=== PATIENT | female | born 1990 | race Caucasian/White ===

== ENCOUNTER 2016-10-11 10:57 | Emergency (ER) | payer BC ==
[~2016-10-11] VITALS: Ht 152.4 cm; Wt 69.5 kg
[~2016-10-11 10:57] MED LIST: ACYC1CAP16 PO; DOXY100T PO; HYDR-3533 PO; Z.0.BCPILL PO; ZOFR4TAB3 SL
[2016-10-11 10:58] VITALS: BP 133/88; PULSE 79; RESP 16; TEMP 98.5; O2SAT 100
[2016-10-11] MEDS ORDERED: TRAM50TA PO (11:18)
[2016-10-11] MEDS ORDERED: ACYC400T PO (11:18)
[2016-10-11] MEDS ORDERED: NORT1TAB PO (11:18)
[2016-10-11] MEDS ORDERED: LORA-373 PO (11:18)
[2016-10-11] MEDS ORDERED: ESCI10TA PO (11:18)
[2016-10-11] MEDS ORDERED: MORPHINE SULFATE 4 MG/ML INJ IV PUSH ONE ×2 (11:30→13:45)
[2016-10-11] MEDS ORDERED: ONDANSETRON HCL 4 MG/2 ML VIAL IV PUSH ONE (11:30)
[2016-10-11 11:42] VITALS: BP 140/76; PULSE 80; RESP 16; O2SAT 100
--- NOTE | 2016-10-11 12:28 | PD ---
HPI Chief Complaint: [employer] Problem/Complaint Time Seen by Provider: 12:22 Travel History International Travel<30 days: No Contact w/Intl Traveler<30days: No Traveled to known affect area: No History of Present Illness HPI 26-year-old female that presents to the ED for evaluation of lower abdominal pain and vaginal bleeding. Per patient she's had this since today. Per patient she has black what appears to be correlated blood coming from the vagina. Per patient she does have a history of PID, endometriosis, PCO as. Per patient this episode started today. She's had episodes like this in the past and she is hoping that she will eventually get surgery to get her endometriosis under control including possible hysterectomy. Per patient she tried to call her doctor today to see the echo see her for this but the office told her to come here if she had severe discomfort. Patient denies any recent sexual contact and states that she does not believe she has an STD or PID. She was treated for bacterial vaginosis recently. Patient's pain is 8 out of 10. Denies any bowel movement or urinary issues. Denies any trauma. Per patient this is started of a couple hours ago. Nothing makes it better or worse. She states that she's had episodes like this in the past. She currently takes control to help prevent this but it seems to continue to happen. Allergy to codeine PFSH Past Medical History Asthma: Yes Diminished Hearing: No Gastrointestinal Disorders: Yes (shivam) Genitourinary: Yes (HERPES, ovarian cysts) Medical other: Yes (endomitrosis, hpv, PID, polycystic ovarian syndrome) Immunizations Current: Yes Tetanus Vaccination: < 5 Years ?: Not LMP: 06/2016 : 0 Ectopic : No Ovarian Cysts: No Past Surgical History Cholecystectomy: Yes Hysterectomy: No Other Surgery: Yes (SURG ON NOSE) Social History Alcohol Use: No Tobacco Use: No Substance Use: No Allergies-Medications (Allergen,Severity, Reaction): Coded Allergies: Codeine (Verified Allergy, Severe, ACTS CRAZY..., 04/10/16) Reported Meds & Prescriptions Reported Meds & Active Scripts Active Lortab (Hydrocodone-Acetaminophen) 5-325 Mg Tab 1 Tab PO Q6H PRN Diclofenac Sodium DR (Diclofenac Sodium) 75 Mg Tabdr 75 Mg PO BID PRN Reported Acyclovir 400 Mg Tab 400 Mg PO DAILY Tramadol (Tramadol HCl) 50 Mg Tab 50 Mg PO Q4H PRN Lorazepam 0.5 Mg Tab 0.5 Mg PO DAILY PRN Escitalopram (Escitalopram Oxalate) 10 Mg Tab 10 Mg PO DAILY Nortrel 1/35 (Norethindrone-Ethinyl Estradiol) 1-35 Mg-Mcg Tab 1 Tab PO DAILY Review of Systems General / Constitutional: No: Fever, Chills, Weight Gain, Weight Loss, Other Eyes: No: Diploplia, Blurred Vision, Photophobia, Drainage, Redness, Foreign Body Sensation, Pain, Tearing, Blind Spots, Visual changes, Blindness, Other HENT: No: Headaches, Vertigo, Lightheadedness, Sore Throat, Rhinitis, Rhinorrhea, Congestion, Nosebleed, Neck Stiffness, Neck Pain, Masses, Gingival Bleeding, Dental Difficulties, Ear Discharge, Earache, Other Cardiovascular: No: Chest Pain or Discomfort, Palpitations, Irregular Rhythm, Tachycardia, Diaphoresis, Syncope, Dyspnea on exertion, Varicosities, Edema, Cyanosis, Varicosities, Phlebitis, Claudication, Other Respiratory: No: Cough, Shortness of Breath, Wheezing, Sneezing, Orthopnea, Hemoptysis, Stridor, Night Sweats, Pleuritic Pain, Other Gastrointestinal: Positive: Abdominal Pain, No: Nausea, Vomiting, Diarrhea, Hematemesis, Hematochezia, Constipation, Changes in Bowel Habits, Indigestion, Dysphagia, Loss of Appetite, Other Genitourinary: Positive: Pelvic Pain, Dysmenorrhea, Vaginal Bleeding, No: Urgency, Frequency, Dysuria, Nocturia, Hematuria, Decreased Urinary Output, Oliguria, Hesitancy, Dribbling, Incontinence, Flank Pain, Dyspareunia, Discharge , Menorrhagia, Metorrhagia, Other Musculoskeletal: No: Myalgias, Arthralgias, Limited ROM, Weakness, Cramping, Edema, Pain, Atrophy, Other Skin: No Rash, No Itching, No Dryness, No Lumps, No Hives, No Change in Pigmentation, No Change in nails, No Alopecia, No Lesions, No Breast Lumps, No Breast Tenderness, No Breast Swelling, No Other Neurologic: No: Weakness, Dizziness, Syncope, Focal Abnormalities, Coordination Problem, Tremor, Ataxia, Headache, Change in Mentation, Slurred Speech, Paresthesia, Incontinence, Seizures, Sensory Disturbance, Other Psychiatric: No: Anxiety, Depression, Suicidal Ideations, Disorder of Thought, Mood Disorder, Substance Abuse, Homicidal Ideation, Other Endocrine: No: Heat Intolerance, Cold Intolerance, Polyuria, Polydipsia, Other Hematologic/Lymphatic: No: Easy Bruising, Lymph Node Enlargement, Other Physical Exam Narrative GENERAL: SKIN: Warm and dry. HEAD: Atraumatic. Normocephalic. EYES: Pupils equal and round. No scleral icterus. No injection or drainage. ENT: No nasal bleeding or discharge. Mucous membranes pink and moist. Tongue is midline. No uvula deviation. NECK: Trachea midline. No JVD. CARDIOVASCULAR: Regular rate and rhythm. No murmurs, S3, S4. RESPIRATORY: No accessory muscle use. Clear to auscultation. Breath sounds equal bilaterally. GASTROINTESTINAL: Abdomen soft, non-tender, nondistended. Hepatic and splenic margins not palpable. Pelvic exam: The within her nurse present. Patient does have some blood and correlated blood coming out of the vagina. Patient does have cervical tenderness to palpation and some adnexal tenderness to palpation but no obvious mass or deformity noted. MUSCULOSKELETAL: Extremities without clubbing, cyanosis, or edema. No obvious deformities. Full range of motion of the upper and lower extremities bilaterally. 2+ pulses bilaterally. NEUROLOGICAL: Awake and alert. No obvious cranial nerve deficits. Motor grossly within normal limits. Five out of 5 muscle strength in the arms and legs. Normal speech. PSYCHIATRIC: Appropriate mood and affect; insight and judgment normal. Data Data Last Documented VS Vital Signs Date Time Temp Pulse Resp B/P Pulse Ox O2 Delivery O2 Flow Rate FiO2 10/11/16 12:57 18 10/11/16 11:42 80 140/76 100 Room Air 10/11/16 10:58 98.5 Orders Gc And Chlamydia Pcr (10/11/16 11:14) Wet Prep Profile (10/11/16 11:14) Urinalysis - C+S If Indicated (10/11/16 11:14) Iv Access Insert/Monitor (10/11/16 11:14) Ed Urine Pregnancytest Poc (10/11/16 11:14) Morphine Inj (Morphine Inj) (10/11/16 11:30) Ondansetron Inj (Zofran Inj) (10/11/16 11:30) Complete Blood Count With Diff (10/11/16 12:32) Us Pelvis Comp W Dop Transvag (10/11/16 ) Labs Laboratory Tests Test 10/11/16 10/11/16 11:39 12:41 Clue Cells (Wet Prep) NONE SEEN Vaginal Trichomonas (Wet Prep) NONE SEEN Vaginal Yeast (Wet Prep) NONE SEEN White Blood Count 4.1 TH/MM3 Red Blood Count 4.73 MIL/MM3 Hemoglobin 13.8 GM/DL Hematocrit 40.1 % Mean Corpuscular Volume 84.8 FL Mean Corpuscular Hemoglobin 29.2 PG Mean Corpuscular Hemoglobin 34.5 % Concent Red Cell Distribution Width 12.9 % Platelet Count 211 TH/MM3 Mean Platelet Volume 8.6 FL Neutrophils (%) (Auto) 57.9 % Lymphocytes (%) (Auto) 33.3 % Monocytes (%) (Auto) 7.6 % Eosinophils (%) (Auto) 0.5 % Basophils (%) (Auto) 0.7 % Neutrophils # (Auto) 2.4 TH/MM3 Lymphocytes # (Auto) 1.4 TH/MM3 Monocytes # (Auto) 0.3 TH/MM3 Eosinophils # (Auto) 0.0 TH/MM3 Basophils # (Auto) 0.0 TH/MM3 CBC Comment DIFF FINAL Differential Comment MDM Medical Decision Making Medical Screen Exam Complete: Yes Emergency Medical Condition: Yes Medical Record Reviewed: Yes Interpretation(s) CBC Diagram 10/11/16 12:41 wet prep negative Last Impressions Abdomen/Pelvis/Transvag US 10/11/16 0000 Signed Impressions: Service Date/Time: Tuesday, October 11, 2016 11:52 - CONCLUSION: 1. Small amount of fluid/blood in the lower uterine segment/cervix. 2. Otherwise negative. No free fluid identified. Both ovaries are sonographically normal. Nathanael Rizzo MD Differential Diagnosis Bacterial vaginosis versus vaginitis versus PID versus endometriosis versus acute on chronic pain versus menstrual cramp Narrative Course 26-year-old female that presents to the ED for evaluation of vaginal pain and pelvic pain. Patient was properly examined and was found to have signs and symptoms consistent what appears to be possible menstrual pain worsened secondary to endometriosis. At this time I do recommend pelvic as well as labs and imaging. She is agreeable with this. Patient was given IV pain medication. Pelvic exam reveals some cervical tenderness as well as correlated blood coming from the vagina. No obvious discharge at this time. No sign of deformity. Labs and imaging showed some pelvic fluid but no sign of acute disease. No sign of infection. At this time this appears to be likely secondary to menstrual period versus endometriosis. I suspect that this will likely require some surgical treatment as she has failed multiple treatments in the past. I highly recommend that she follows up with [employer] SUPER[employer] for likely surgical consult. SATURNINO agrees and understands.I will treat her pain with Lortab and diclofenac sodium. Recommend close follow with PCP. See ED worsening symptoms. Patient was told that if anything worsens she is to come back. GC and Chlamydia still pending but I do not believe this is related to infection and it believe this is likely more related to her menstrual period With endometriosis. This was discussed with my attending Dr Camacho who agrees with plan. Diagnosis Primary Impression: Dysmenorrhea Patient Instructions: General Instructions, Narcotic given in the ED Additional Instructions: Take medications as prescribed. Follow-up with [employer]PER[employer] this week for reevaluation and hopefully scheduling surgical fixation of the issue sooner than later. See ED for any worsening symptoms. Do not drink or drive while taking pain medication. Apply ice or heat as needed for pain. All of your labs look good and no sign of infection. Pelvic US showed only some fluid in the pelvis, but no torsion, masses or deformities. Med/Other Pt SpecificInfo: Prescription(s) given Scripts Hydrocodone-Acetaminophen (Lortab)5-325 Mg Tab1 Tab PO Q6H PRN (PAIN) #15 TAB Prov:Cali Camacho MD 10/11/[address] 75 Mg Tabdr75 Mg PO BID PRN (PAIN SCALE 1 TO 10) #20 TAB Prov:Cali Camacho MD 10/11/16 Disposition: 01 DISCHARGE HOME Condition: Stable Wei Demarco Oct 11, 2016 12:28
--- NOTE | 2016-10-11 12:45 | RADRPT ---
EXAM DATE/TIME: 10/11/2016 11:52 [facility] COMPARISON: US PELVIS,COMP,W DOPLR, TRANS VAG, April 10, 2016, 17:28. INDICATIONS : Pelvic pains with vaginal bleeding. MEDICAL HISTORY : Endometriosis. HPV. PID. Polycystic ovarian syndrome. SURGICAL HISTORY : Cholecystectomy. Nose surgery. ENCOUNTER: Initial ACUITY: 1 day PAIN SCORE: 7/10 LOCATION: Bilateral pelvis MEASUREMENTS: TRANSVAGINAL: UTERUS: 6.7 x 4.6 x 3.6 cm ENDOMETRIAL STRIPE: 3 mm RIGHT OVARY: 3.3 x 2.7 x 1.6 cm LEFT OVARY: 2.8 x 1.8 x 1.3 cm FINDINGS: UTERUS: The myometrium has homogeneous echotexture without mass. There is some fluid in the lower uterine se gment/cervix. RIGHT OVARY: Ovary contains no mass or significant cystic lesion. LEFT OVARY: Ovary contains no mass or significant cystic lesion. MISCELLANEOUS: No free fluid. CONCLUSION: 1. Small amount of fluid/blood in the lower uterine segment/cervix. 2. Otherwise negative. No free fluid identified. Both ovaries are sonographically normal. Nathanael Rizzo MD on October 11, 2016 at 12:41 Board Certified Radiologist. This report was verified electronically.
[2016-10-11 12:53] LABS: AUTOMATED NEUTROPHIL # 2.4 TH/MM3 (1.8-7.7); BASOPHIL % 0.7 % (0.0-2.0); EOSINOPHIL % 0.5 % (0.0-4.0); HEMATOCRIT 40.1 % (35.0-46.0); HEMO FLAGS DIFF FINAL; LYMPH % 33.3 % (9.0-44.0); LYMPHOCYTE # 1.4 TH/MM3 (1.0-4.8); MEAN CELL VOLUME 84.8 FL (80.0-100.0); MEAN CORPUSCULAR HEMOGLOBIN 29.2 PG (27.0-34.0); MEAN CORPUSCULAR HGB CONC 34.5 % (32.0-36.0); MONO % 7.6 % (0.0-8.0); NEUT % 57.9 % (16.0-70.0); PLATELET COUNT 211 TH/MM3 (150-450); RED BLOOD COUNT 4.73 MIL/MM3 (4.00-5.30); RED CELL DISTRIBUTION WIDTH 12.9 % (11.6-17.2); WHITE BLOOD COUNT 4.1 TH/MM3 (4.0-11.0)
[2016-10-11 12:57] VITALS: RESP 18
[2016-10-11] MEDS ORDERED: DICL75TA PO (13:02)
[2016-10-11] MEDS ORDERED: HYDR-3533 PO (13:02)
[2016-10-11] MEDS ORDERED: KETOROLAC TROMETHAMINE 30 MG/ML (IVP) VIAL IV PUSH ONE (13:45)
[2016-10-11 15:15] LABS: CHLAMYDIA PCR NOT DETECTED (NOT DETECT); NEISSERIA PCR NOT DETECTED (NOT DETECT)
== END 2016-10-12 02:15 | disposition home or self-care (01) ==
LOC: NEPE 10:57
DX: N94.6 Dysmenorrhea, unspecified (principal)
CPT/HCPCS: 76830; 76856; 84703; 85025; 87210; 87491; 87591; 93975; 96374; 96375; 96376; 99284; J1885; J2270; J2405

== ENCOUNTER 2016-11-04 17:52 | Emergency (ER) | payer BC ==
[~2016-11-04] VITALS: Ht 152.4 cm; Wt 68.0 kg
[~2016-11-04 17:52] MED LIST changes: -ACYC1CAP16 PO; +ACYC400T PO; +DICL75TA PO; -DOXY100T PO; +ESCI10TA PO; +LORA-373 PO; +NORT1TAB PO; +TRAM50TA PO; -Z.0.BCPILL PO; -ZOFR4TAB3 SL
[2016-11-04 17:54] VITALS: BP 134/82; PULSE 77; RESP 16; TEMP 98.7; O2SAT 100
[2016-11-04 19:41] VITALS: BP 142/81; PULSE 65; RESP 18; O2SAT 100
--- NOTE | 2016-11-04 20:15 | PD ---
HPI Chief Complaint: Wound/Suture/Staple Re-Check Time Seen by Provider: 19:30 Travel History International Travel<30 days: No Contact w/Intl Traveler<30days: No Traveled to known affect area: No History of Present Illness HPI Patient comes in for evaluation of her surgical site from laparoscopic POWER OPERATOR surgery performed a week ago Monday. Patient states she was released from her POWER OPERATOR on Monday to go back to work. Patient states she woke this morning she ripped the Dermabond off accidentally causing a burning sensation around the wound. Patient denies doing anything for this as the patient worked all day. Patient contacted her GYNs office who recommended she comes emergency Department for treatment and evaluation. Patient denies any drainage with this , fevers, vaginal discharge, urinary symptoms, back pain, or other concerns. Patient states she was going to put a butterfly bandage on it was for this, but was uncertain if this would be safe or not. PFSH Past Medical History Asthma: Yes Diminished Hearing: No Gastrointestinal Disorders: Yes (shivam) Genitourinary: Yes (HERPES, ovarian cysts) Medical other: Yes (PID, PCOS, endometerosis) Immunizations Current: Yes Tetanus Vaccination: < 5 Years Influenza Vaccination: Yes ?: Not LMP: JUL 2016 : 0 Ectopic : No Ovarian Cysts: No Past Surgical History Cholecystectomy: Yes Gynecologic Surgery: Yes (laprotomy) Hysterectomy: No Other Surgery: Yes (deviated septum in nose) Social History Alcohol Use: No Tobacco Use: No Substance Use: No Allergies-Medications (Allergen,Severity, Reaction): Coded Allergies: Codeine (Verified Allergy, Severe, ACTS CRAZY..., 04/10/16) Reported Meds & Prescriptions Reported Meds & Active Scripts Active Lortab (Hydrocodone-Acetaminophen) 5-325 Mg Tab 1 Tab PO Q6H PRN Diclofenac Sodium DR (Diclofenac Sodium) 75 Mg Tabdr 75 Mg PO BID PRN Reported Acyclovir 400 Mg Tab 400 Mg PO DAILY Tramadol (Tramadol HCl) 50 Mg Tab 50 Mg PO Q4H PRN Lorazepam 0.5 Mg Tab 0.5 Mg PO DAILY PRN Escitalopram (Escitalopram Oxalate) 10 Mg Tab 10 Mg PO DAILY Nortrel 1/35 (Norethindrone-Ethinyl Estradiol) 1-35 Mg-Mcg Tab 1 Tab PO DAILY Review of Systems Except as stated in HPI: all other systems reviewed are Neg Physical Exam Narrative GENERAL: Well-developed, overly nourished, in no acute distress, and non-ill appearing. SKIN: Focused skin assessment warm and dry. 3 well healing surgical sites noted on the abdomen from recent laparoscopic surgery. One in the right suprapubic region has a Dermabond off minimally open very superficial. It is afebrile minimal tenderness that is no different from other surgical sites, there is no drainage, crepitus, or erythematous. HEAD: Atraumatic. Normocephalic. EYES: Pupils equal and round. EOMI. No scleral icterus. No injection or drainage. ENT: No nasal bleeding or discharge. Mucous membranes pink and moist. NECK: Trachea midline. Supple. No nuclear rigidity. RESPIRATORY: No accessory muscle use. No respiratory distress. MUSCULOSKELETAL: No obvious deformities. No clubbing. No cyanosis. No edema. Full range of motion. NEUROLOGICAL: Awake and alert. No obvious cranial nerve deficits. Motor grossly within normal limits. Normal speech. PSYCHIATRIC: Appropriate mood and affect; insight and judgment normal. Data Data Last Documented VS Vital Signs Date Time Temp Pulse Resp B/P Pulse Ox O2 Delivery O2 Flow Rate FiO2 11/04/16 19:41 65 18 142/81 100 Room Air 11/04/16 17:54 98.7 MDM Medical Decision Making Medical Screen Exam Complete: Yes Emergency Medical Condition: Yes Differential Diagnosis Wound check, wound infection, wound dehiscence, other Narrative Course Patient in no obvious distress upon re-evaluation. Discussed patient with Dr. Ann, who saw and evaluated the patient and is in agreement with plan of care and disposition.. Any questions/concerns in reference to patient diagnosis/ condition discussed and clarified prior to patient's discharge. Reinforced sheer importance of close follow up with patient's primary physician or primary care clinic and/or POWER OPERATOR. Instructed patient to return to ED immediately, if symptoms return/worsen. Pt showed understanding of above instructions. Further instructions and recommendations were detailed in discharge paperwork. Pt ambulated without difficulty out of ED at discharge. Procedures Procedure Narrative Verbal consent was obtained. Area was cleaned and prepped using sterile saline. Steri-Strip was applied. Patient tolerated procedure well. There is no complications. Diagnosis Primary Impression: Encounter for postoperative wound check Patient Instructions: General Instructions, Steristrips (ED) Additional Instructions: Follow-up with your primary care physician and/or POWER OPERATOR next week for reevaluation. Keep wound dry and clean as possible using soap and water. Do not soak or submerge wound. Return to the emergency department if symptoms get worse. Disposition: 01 DISCHARGE HOME Condition: Stable Houston Steinberg Nov 04, 2016 20:15
== END 2016-11-04 20:53 | disposition home or self-care (01) ==
LOC: NEPC 17:52
DX: T81.30XA Disruption of wound, unspecified, initial encounter (principal); R20.8 Other disturbances of skin sensation; J45.909 Unspecified asthma, uncomplicated; X58.XXXA Exposure to other specified factors, initial encounter
CPT/HCPCS: 99282

== ENCOUNTER 2016-11-27 11:50 | Emergency (ER) | payer BC ==
[~2016-11-27] VITALS: Ht 152.4 cm; Wt 71.0 kg
[2016-11-27 11:54] VITALS: BP 114/77; PULSE 92; RESP 15; TEMP 98.2; O2SAT 100
[2016-11-27] MEDS ORDERED: SODIUM CHLORIDE 0.9% FLUSH 10 ML FLUSH IVF PRN (12:30)
[2016-11-27] MEDS ORDERED: SODIUM CHLOR 0.9% 1000 ML INJ 1,000 ML IV ONE (12:30)
[2016-11-27 13:03] LABS: AUTOMATED NEUTROPHIL # 3.6 TH/MM3 (1.8-7.7); BASOPHIL # 0.1 TH/MM3 (0-0.2); BASOPHIL % 1.1 % (0.0-2.0); EOSINOPHIL % 0.6 % (0.0-4.0); HEMATOCRIT 38.1 % (35.0-46.0); LYMPH % 23.9 % (9.0-44.0); LYMPHOCYTE # 1.3 TH/MM3 (1.0-4.8); MEAN CORPUSCULAR HEMOGLOBIN 29.1 PG (27.0-34.0); MEAN CORPUSCULAR HGB CONC 34.2 % (32.0-36.0); MONO % 5.5 % (0.0-8.0); NEUT % 68.9 % (16.0-70.0); PLATELET COUNT 165 TH/MM3 (150-450); RED BLOOD COUNT 4.48 MIL/MM3 (4.00-5.30); RED CELL DISTRIBUTION WIDTH 11.8 % (11.6-17.2); WHITE BLOOD COUNT 5.3 TH/MM3 (4.0-11.0)
[2016-11-27 13:05] LABS: HEMO FLAGS DIFF FINAL
--- NOTE | 2016-11-27 13:07 | PD ---
HPI Chief Complaint: Pain: Acute or Chronic Time Seen by Provider: 12:22 Travel History International Travel<30 days: No Contact w/Intl Traveler<30days: No Traveled to known affect area: No History of Present Illness HPI Patient is a 26 year old female who presents to ER with c/o of uri. Patient reports that for the past 2 weeks, her ears feel itchy and irritated and reports that her throat feels course and sore. Reports that over the past few days, she has been having chest pain/chest congestion. Reports that she has been coughing so hard, her chest feels tight. Reports no fever/chills. Denies any recent travels/trips. No sick contacts. Patient with no n/v/d, no other c/ o. PFSH Past Medical History Asthma: Yes Diminished Hearing: No Gastrointestinal Disorders: Yes (shivam) Genitourinary: Yes (HERPES, ovarian cysts) Immunizations Current: Yes ?: Not LMP: JULY : 0 Ectopic : No Ovarian Cysts: No Past Surgical History Cholecystectomy: Yes Gynecologic Surgery: Yes (laprotomy) Hysterectomy: No Other Surgery: Yes (deviated septum in nose) Social History Alcohol Use: No Tobacco Use: No Substance Use: No Allergies-Medications (Allergen,Severity, Reaction): Coded Allergies: Codeine (Verified Allergy, Severe, ACTS CRAZY..., 11/27/16) Lortab (Verified Allergy, Intermediate, HIVES, 11/27/16) Reported Meds & Prescriptions Reported Meds & Active Scripts Active Prednisone 20 Mg Tab 20 Mg PO BID 5 Days Azithromycin 500 Mg Tab 500 Mg PO DAILY Lortab (Hydrocodone-Acetaminophen) 5-325 Mg Tab 1 Tab PO Q6H PRN Diclofenac Sodium DR (Diclofenac Sodium) 75 Mg Tabdr 75 Mg PO BID PRN Reported Acyclovir 400 Mg Tab 400 Mg PO DAILY Tramadol (Tramadol HCl) 50 Mg Tab 50 Mg PO Q4H PRN Lorazepam 0.5 Mg Tab 0.5 Mg PO DAILY PRN Escitalopram (Escitalopram Oxalate) 10 Mg Tab 10 Mg PO DAILY Nortrel 1/35 (Norethindrone-Ethinyl Estradiol) 1-35 Mg-Mcg Tab 1 Tab PO DAILY Review of Systems General / Constitutional: No: Fever Eyes: No: Visual changes HENT: Positive: Sore Throat, Rhinitis, No: Headaches Cardiovascular: No: Chest Pain or Discomfort Respiratory: Positive: Cough, Shortness of Breath Gastrointestinal: No: Abdominal Pain Genitourinary: No: Dysuria Musculoskeletal: No: Pain Skin: No Rash Neurologic: No: Weakness Psychiatric: No: Depression Endocrine: No: Polydipsia Hematologic/Lymphatic: No: Easy Bruising Physical Exam Narrative GENERAL: nad, patient well appearing, nontoxic on evaluation SKIN: Focused skin assessment warm/dry. HEAD: Atraumatic. Normocephalic. EYES: Pupils equal and round. No scleral icterus. No injection or drainage. ENT: No nasal bleeding or discharge. Mucous membranes pink and moist. TMs intact, no erythema or drainage, posterior pharynx with mild erythema, no edema or swelling NECK: Trachea midline. No JVD. CARDIOVASCULAR: Regular rate and rhythm. No murmur appreciated. RESPIRATORY: No accessory muscle use. Clear to auscultation. Breath sounds equal bilaterally. GASTROINTESTINAL: Abdomen soft, non-tender, nondistended. Hepatic and splenic margins not palpable. MUSCULOSKELETAL: No obvious deformities. No clubbing. No cyanosis. No edema. NEUROLOGICAL: Awake and alert. No obvious cranial nerve deficits. Motor grossly within normal limits. Normal speech. PSYCHIATRIC: Appropriate mood and affect; insight and judgment normal. Data Data Last Documented VS Vital Signs Date Time Temp Pulse Resp B/P Pulse Ox O2 Delivery O2 Flow Rate FiO2 11/27/16 14:15 77 16 130/71 100 11/27/16 11:54 98.2 Orders Electrocardiogram (11/27/16 12:25) Basic Metabolic Panel (Bmp) (11/27/16 12:25) Complete Blood Count With Diff (11/27/16 12:25) Influenzae A/B Antigen (11/27/16 12:25) Urinalysis - C+S If Indicated (11/27/16 12:25) Chest, Pa & Lat (11/27/16 12:25) Ecg Monitoring (11/27/16 12:25) Iv Access Insert/Monitor (11/27/16 12:25) Oximetry (11/27/16 12:25) Sodium Chloride 0.9% Flush (Ns Flush) (11/27/16 12:30) Group A Rapid Strep Screen (11/27/16 12:25) D-Dimer (11/27/16 12:25) Sodium Chlor 0.9% 1000 Ml Inj (Ns 1000 M (11/27/16 12:30) Methylprednisolone So Succ Inj (Solumedr (11/27/16 13:30) Ketorolac Inj (Toradol Inj) (11/27/16 13:30) Strep Culture (Group A) (11/27/16 12:45) Ct Pulmonary Angiogram (11/27/16 14:00) Ed Urine Pregnancytest Poc (11/27/16 14:02) Iohexol 350 Inj (Omnipaque 350 Inj) (11/27/16 14:53) Labs Laboratory Tests Test 11/27/16 11/27/16 12:45 13:06 White Blood Count 5.3 TH/MM3 Red Blood Count 4.48 MIL/MM3 Hemoglobin 13.0 GM/DL Hematocrit 38.1 % Mean Corpuscular Volume 85.0 FL Mean Corpuscular Hemoglobin 29.1 PG Mean Corpuscular Hemoglobin 34.2 % Concent Red Cell Distribution Width 11.8 % Platelet Count 165 TH/MM3 Mean Platelet Volume 8.4 FL Neutrophils (%) (Auto) 68.9 % Lymphocytes (%) (Auto) 23.9 % Monocytes (%) (Auto) 5.5 % Eosinophils (%) (Auto) 0.6 % Basophils (%) (Auto) 1.1 % Neutrophils # (Auto) 3.6 TH/MM3 Lymphocytes # (Auto) 1.3 TH/MM3 Monocytes # (Auto) 0.3 TH/MM3 Eosinophils # (Auto) 0.0 TH/MM3 Basophils # (Auto) 0.1 TH/MM3 CBC Comment DIFF FINAL Differential Comment D-Dimer Quantitative (PE/DVT) 0.91 MG/L FEU Sodium Level 141 MEQ/L Potassium Level 3.6 MEQ/L Chloride Level 106 MEQ/L Carbon Dioxide Level 26.1 MEQ/L Anion Gap 9 MEQ/L Blood Urea Nitrogen 7 MG/DL Creatinine 0.72 MG/DL Estimat Glomerular Filtration 97 ML/MIN Rate Random Glucose 79 MG/DL Calcium Level 9.0 MG/DL Urine Collection Type CLEAN CATCH Urine Color YELLOW Urine Turbidity CLEAR Urine pH 6.0 Urine Specific [place] 1.016 Urine Protein NEG mg/dL Urine Glucose (UA) NEG mg/dL Urine Ketones NEG mg/dL Urine Occult Blood NEG Urine Nitrite NEG Urine Bilirubin NEG Urine Leukocyte Esterase NEG Urine WBC 0-2 /hpf Urine Squamous Epithelial > 8 /hpf Cells Urine Bacteria RARE /hpf Microscopic Urinalysis Comment CULT NOT INDICATED Urine Collection Time 13:06 [facility] Medical Decision Making Medical Screen Exam Complete: Yes Emergency Medical Condition: Yes Interpretation(s) EKG at 1242: NSR at 73bpm, qt/qtc: 386/408 Vital Signs Date Time Temp Pulse Resp B/P Pulse Ox O2 Delivery O2 Flow Rate FiO2 11/27/16 11:54 98.2 92 15 114/77 100 Differential Diagnosis Pneumonia, otitis media, pharyngitis, viral syndrome, ACS, arrhythmia, PE, electrolyte abnormality Narrative Course Patient is a 26-year-old female who presents to emergency room with complaints of not feeling well for the past 2 weeks. Patient reports that her ears feel itchy, her throat feels scratchy, reports that she has had a cough for the past 2 weeks. Patient looks nontoxic on evaluation, EKG, rapid strep, influenza, x-ray of the chest and labs ordered. Plan to monitor patient. Vital Signs Date Time Temp Pulse Resp B/P Pulse Ox O2 Delivery O2 Flow Rate FiO2 11/27/16 14:15 77 16 130/71 100 11/27/16 13:09 97 11/27/16 11:54 98.2 92 15 114/77 100 Laboratory Tests Test 11/27/16 11/27/16 12:45 13:06 White Blood Count 5.3 TH/MM3 (4.0-11.0) Red Blood Count 4.48 MIL/MM3 (4.00-5.30) Hemoglobin 13.0 GM/DL (11.6-15.3) Hematocrit 38.1 % (35.0-46.0) Mean Corpuscular Volume 85.0 FL (80.0-100.0) Mean Corpuscular Hemoglobin 29.1 PG (27.0-34.0) Mean Corpuscular Hemoglobin 34.2 % Concent (32.0-36.0) Red Cell Distribution Width 11.8 % (11.6-17.2) Platelet Count 165 TH/MM3 (150-450) Mean Platelet Volume 8.4 FL (7.0-11.0) Neutrophils (%) (Auto) 68.9 % (16.0-70.0) Lymphocytes (%) (Auto) 23.9 % (9.0-44.0) Monocytes (%) (Auto) 5.5 % (0.0-8.0) Eosinophils (%) (Auto) 0.6 % (0.0-4.0) Basophils (%) (Auto) 1.1 % (0.0-2.0) Neutrophils # (Auto) 3.6 TH/MM3 (1.8-7.7) Lymphocytes # (Auto) 1.3 TH/MM3 (1.0-4.8) Monocytes # (Auto) 0.3 TH/MM3 (0-0.9) Eosinophils # (Auto) 0.0 TH/MM3 (0-0.4) Basophils # (Auto) 0.1 TH/MM3 (0-0.2) CBC Comment DIFF FINAL Differential Comment D-Dimer Quantitative (PE/DVT) 0.91 MG/L FEU (0.00-0.50) Sodium Level 141 MEQ/L (136-145) Potassium Level 3.6 MEQ/L (3.5-5.1) Chloride Level 106 MEQ/L (98-107) Carbon Dioxide Level 26.1 MEQ/L (21.0-32.0) Anion Gap 9 MEQ/L (5-15) Blood Urea Nitrogen 7 MG/DL (7-18) Creatinine 0.72 MG/DL (0.50-1.00) Estimat Glomerular Filtration 97 ML/MIN (>89) Rate Random Glucose 79 MG/DL (74-106) Calcium Level 9.0 MG/DL (8.5-10.1) Urine Collection Type CLEAN CATCH Urine Color YELLOW (YELLW/STRAW) Urine Turbidity CLEAR (CLEAR) Urine pH 6.0 (5.0-8.5) Urine Specific [place] 1.016 (1.002-1.035) Urine Protein NEG mg/dL (NEG-TRACE) Urine Glucose (UA) NEG mg/dL (NEG) Urine Ketones NEG mg/dL (NEG) Urine Occult Blood NEG (NEG) Urine Nitrite NEG (NEG) Urine Bilirubin NEG (NEG) Urine Leukocyte Esterase NEG (NEG) Urine WBC 0-2 /hpf (0-5) Urine Squamous Epithelial > 8 /hpf (0-5) Cells Urine Bacteria RARE /hpf (NONE) Microscopic Urinalysis Comment CULT NOT INDICATED Urine Collection Time 13:[address] Angiography 11/27/16 1400 Signed Impressions: Service Date/Time: Sunday, November 27, 2016 14:36 - CONCLUSION: 1. The lungs are clear. 2. No evidence of pulmonary embolism. Morgan Dsouza MD Chest X-Ray 11/27/16 1225 Signed Impressions: Service Date/Time: Sunday, November 27, 2016 12:50 - CONCLUSION: No acute disease. Morgan Dsouza MD Microbiology Date/Time Procedure Status Source Growth 11/27/16 12:45 Group A Streptococcus Screen ([facility]AT[facility]ICE) - Final Complete Throat 11/27/16 12:45 Influenza Types A,B Antigen ([facility]) - Final Complete Nasal Washing NEGATIVE FOR FLU A AND B ANTIGEN.... 11/27/16 12:45 Group A Streptococcus Screen Received Throat Pending Patient nontoxic on evaluation. Patient reports that she is feeling much better at this time. I reviewed all labs and all studies with patient in detail. Patient will follow-up with her primary care doctor and will return to emergency room as needed. Diagnosis Primary Impression: Bronchitis Patient Instructions: General Instructions Additional Instructions: Please follow up with your primary care doctor in 2-3 days Please take all medications as prescribed Return to emergency room if symptoms worsen or progress Please return to the emergency room as needed Med/Other Pt SpecificInfo: Prescription(s) given Scripts Prednisone 20 Mg Tab20 Mg PO BID 5 Days Ref 0 Prov:Rayna Reyes DO 11/27/16 Azithromycin 500 Mg [id number] Mg PO DAILY #5 TAB Ref 0 Prov:Rayna Reyes DO 11/27/16 Disposition: 01 DISCHARGE HOME Condition: Stable Rayna Reyes DO November 27, 2016 13:07
[2016-11-27 13:09] VITALS: O2SAT 97
--- NOTE | 2016-11-27 13:14 | RADHPO ---
EXAM DATE/TIME: 11/27/2016 12:50 [facility] COMPARISON: CHEST PA & LAT, April 24, 2014, 14:14. INDICATIONS : Short of breath, cough, congestion, chest pressure MEDICAL HISTORY : None. SURGICAL HISTORY : None. ENCOUNTER: Initial ACUITY: 4 - 6 days PAIN SCORE: 3/10 LOCATION: Bilateral chest FINDINGS: PA and lateral views of the chest demonstrate the lungs to be symmetrically aerated without evidence of mass, infiltrate or effusion. The cardiomediastinal contours are unremarkable. Osseous structure s are intact. CONCLUSION: No acute disease. Morgan Dsouza MD on November 27, 2016 at 13:12 Board Certified Radiologist. This report was verified electronically.
[2016-11-27 13:23] LABS: BLOOD, URINE NEG (NEG); GLUCOSE,URINE NEG (NEG); KETONE, URINE NEG (NEG); NITRITE,URINE NEG (NEG)
[2016-11-27 13:26] LABS: METHOD OF COLLECTION CLEAN CATCH; URINE COLOR YELLOW (YELLW/STRAW)
[2016-11-27 13:27] LABS: BACTERIA, URINE RARE /hpf; COMMENT (UR) CULT NOT INDICATED; CULTURE IF INDICATED CULT NOT INDICATED; SQUAMOUS EPITHELIAL CELL URINE > 8 /hpf (0-5); WBC, URINE 0-2 /hpf (0-5)
[2016-11-27 13:27] LABS: POTASSIUM 3.6 MEQ/L (3.5-5.1)
[2016-11-27 13:30] LABS: BICARBONATE 26.1 MEQ/L (21.0-32.0)
[2016-11-27] MEDS ORDERED: KETOROLAC TROMETHAMINE 30 MG/ML (IVP) VIAL IV PUSH ONE (13:30)
[2016-11-27] MEDS ORDERED: methylPREDNISolone SOD SUCC 125 MG/2 ML VIAL IV PUSH ONE (13:30)
[2016-11-27 14:15] VITALS: BP 130/71; PULSE 77; RESP 16; O2SAT 100
[2016-11-27] MEDS ORDERED: IOHEXOL 350 MG/ML 10 ML VIAL (for RAD DIAG) IV ONE (14:53)
--- NOTE | 2016-11-27 15:09 | RADHPO ---
EXAM DATE/TIME: 11/27/2016 14:36 [facility] COMPARISON: CHEST PA & LAT, November 27, 2016, 12:50. INDICATIONS : Short of breath and anterior chest pain. Evaluate for pulmonary embolism. Recent laparoscopy. IV CONTRAST: 65 cc Omnipaque 350 (iohexol) IV RADIATION DOSE: 13.49 CTDIvol (mGy) MEDICAL HISTORY : None SURGICAL HISTORY : Cholecystectomy. ENCOUNTER: Initial ACUITY: 1 week PAIN SCALE: 3/10 LOCATION: chest anterior TECHNIQUE: Volumetric scanning of the chest was performed using a pulmonary embolism protocol MIP images were re constructed. Using automated exposure control and adjustment of the mA and/or kV according to patien t size, radiation dose was kept as low as reasonably achievable to obtain optimal diagnostic quality images. FINDINGS: PULMONARY ARTERIES: No filling defects are seen in the pulmonary arteries through the segmental level. LUNGS: There is no consolidation or pneumothorax . No concerning pulmonary nodule is visualized. PLEURAE: There is no pleural thickening or pleural effusion. MEDIASTINUM: There is good visualization of the great vessels of the middle mediastinum. No evidence of mediastin al or hilar adenopathy/mass. MUSCULOSKELETAL: Within normal limits for patient age. MISCELLANEOUS: The visualized upper abdominal organs demonstrate no acute abnormality. Status post cholecystectomy. CONCLUSION: 1. The lungs are clear. 2. No evidence of pulmonary embolism. Morgan Dsouza MD on November 27, 2016 at 15:06 Board Certified Radiologist. This report was verified electronically.
[2016-11-27] MEDS ORDERED: PRED20 PO (15:25)
[2016-11-27] MEDS ORDERED: AZIT500T2 PO (15:25)
--- NOTE | 2016-11-28 11:26 | EKG ---
Date Performed: 11/27/2016 Time Performed: 12:42:40 PTAGE: 26 years EKG: Sinus rhythm Indeterminate axis Incomplete RBBB Anterior T wave changes are nonspecific Borderline ECG NO PREVIOUS TRACING DOCTOR: Marvin Wang Interpretating Date/Time 11/28/2016 11:20:41
== END 2016-11-27 15:42 | disposition home or self-care (01) ==
LOC: PHED 11:50
DX: J40 Bronchitis, not specified as acute or chronic (principal); I45.10 Unspecified right bundle-branch block; J45.909 Unspecified asthma, uncomplicated; R07.89 Other chest pain
CPT/HCPCS: 71020; 71275; 80048; 81001; 84703; 85025; 85379; 87081; 87804; 87880; 93005; 96361; 96374; 96375; 99284; J1885; J2930; J7030; Q9967

== ENCOUNTER 2016-12-20 17:31 | Emergency (ER) | payer BC ==
[~2016-12-20] VITALS: Ht 152.4 cm; Wt 74.3 kg
[~2016-12-20 17:31] MED LIST changes: +AZIT500T2 PO; +PRED20 PO
[2016-12-20 17:50] VITALS: BP 119/83; PULSE 88; RESP 16; TEMP 98.4; O2SAT 100
[2016-12-20] MEDS ORDERED: SODIUM CHLOR 0.9% 1000 ML INJ 1,000 ML IV SCH (18:12)
[2016-12-20 18:31] VITALS: RESP 16; O2SAT 100
--- NOTE | 2016-12-20 18:40 | PD ---
HPI Chief Complaint: Web Site Administrator Problem/Complaint Time Seen by Provider: 18:07 Travel History International Travel<30 days: No Contact w/Intl Traveler<30days: No Traveled to known affect area: No History of Present Illness HPI 26-year-old female here for evaluation of hematuria, pelvic pain, vaginal burning. Patient first noted symptoms yesterday. Symptoms continued today. She is having lower abdominal/pelvic cramping. She is also noticed a vaginal discharge with an odor. She has had similar symptoms in the past when she was diagnosed with PID. About a month and half ago the patient had a laparoscopic procedure for endometriosis. She tells me she essentially active with one partner whom she has been with for the last 4 years and believe she is in a monogamous relationship. She has noticed increased urinary frequency as well as some dysuria. States that her last menstrual period was in July of this year, but reports history of irregular menstrual periods. History of cholecystectomy as well. PFSH Past Medical History Asthma: Yes Anxiety: Yes Diminished Hearing: No Gastrointestinal Disorders: Yes (shivam) Genitourinary: Yes (HERPES, ovarian cysts) Reproductive: Yes (endometriosis, + HPV) Immunizations Current: Yes Tetanus Vaccination: < 5 Years Influenza Vaccination: Yes ?: Not LMP: jul 2016, states on control : 0 Ectopic : No Ovarian Cysts: Yes (PCOS) Past Surgical History Cholecystectomy: Yes Gynecologic Surgery: Yes (laprotomy) Hysterectomy: No Other Surgery: Yes (deviated septum in nose) Social History Alcohol Use: No Tobacco Use: No Substance Use: No Allergies-Medications (Allergen,Severity, Reaction): Coded Allergies: Codeine (Verified Allergy, Severe, ACTS CRAZY..., 12/20/16) Lortab (Verified Allergy, Intermediate, HIVES, 12/20/16) Reported Meds & Prescriptions Reported Meds & Active Scripts Active Reported Proair Hfa 8.5 GM Inh (Albuterol Sulfate) 90 Mcg/Act Aer 2 Puff INH Q4-6H PRN 108 mcg/actuation Benzonatate 200 Mg Cap 200 Mg PO TID PRN Acyclovir 400 Mg Tab 400 Mg PO DAILY Tramadol (Tramadol HCl) 50 Mg Tab 50 Mg PO Q4H PRN Lorazepam 0.5 Mg Tab 0.5 Mg PO DAILY PRN Escitalopram (Escitalopram Oxalate) 10 Mg Tab 10 Mg PO DAILY Nortrel 1/35 (Norethindrone-Ethinyl Estradiol) 1-35 Mg-Mcg Tab 1 Tab PO DAILY Review of Systems Except as stated in HPI: all other systems reviewed are Neg Physical Exam Narrative GENERAL: Well-developed, well-nourished, comfortable, no acute distress. SKIN: Focused skin assessment warm/dry. No rash. HEAD: Atraumatic. Normocephalic. EYES: Pupils equal and round. No scleral icterus. No injection or drainage. ENT: Mucous membranes pink and moist. NECK: Trachea midline. No JVD. CARDIOVASCULAR: Regular rate and rhythm. No murmur appreciated. RESPIRATORY: No accessory muscle use. Clear to auscultation. Breath sounds equal bilaterally. GASTROINTESTINAL: Abdomen soft, nondistended. Moderate suprapubic tenderness without peritoneal signs. Mild right and left lower quadrant tenderness without peritoneal signs. Rest of abdomen is soft and nontender. Normal bowel sounds. CORPORATE CONCIERGE: Exam performed in the presence of female nurse. Normal external genitalia. Normal cervix. Scant yellowish vaginal discharge. Mild uterine tenderness. Mild bilateral adnexal tenderness without masses. No CMT. MUSCULOSKELETAL: No obvious deformities. No clubbing. No cyanosis. No edema. NEUROLOGICAL: Awake and alert. No obvious cranial nerve deficits. Motor grossly within normal limits. Normal speech. PSYCHIATRIC: Appropriate mood and affect; insight and judgment normal. Data Data Last Documented VS Vital Signs Date Time Temp Pulse Resp B/P Pulse Ox O2 Delivery O2 Flow Rate FiO2 12/20/16 18:31 16 100 Room Air 12/20/16 17:50 98.4 88 119/83 Orders Complete Blood Count With Diff (12/20/16 18:12) Comprehensive Metabolic Panel (12/20/16 18:12) Lipase (12/20/16 18:12) Prothrombin Time / Inr (Pt) (12/20/16 18:12) Act Partial Throm Time (Ptt) (12/20/16 18:12) Urinalysis - C+S If Indicated (12/20/16 18:12) Ct Abd/Pel W Iv Contrast(Rout) (12/20/16 18:12) Iv Access Insert/Monitor (12/20/16 18:12) Ecg Monitoring (12/20/16 18:12) Oximetry (12/20/16 18:12) Sodium Chlor 0.9% 1000 Ml Inj (Ns 1000 M (12/20/16 18:12) Sodium Chloride 0.9% Flush (Ns Flush) (12/20/16 18:15) Ed Urine Pregnancytest Poc (12/20/16 18:12) Gc And Chlamydia Pcr (12/20/16 18:12) Wet Prep Profile (12/20/16 18:12) Urine Culture (12/20/16 18:30) Morphine Inj (Morphine Inj) (12/20/16 19:15) Phenazopyridine (Pyridium) (12/20/16 19:15) Iohexol 350 Inj (Omnipaque 350 Inj) (12/20/16 20:04) Azithromycin Powd Pack (Zithromax Powd P (12/20/16 20:15) Ceftriaxone Inj (Rocephin Inj) (12/20/16 20:15) Lidocaine 1% Inj (50 Ml) (Xylocaine 1% I (12/20/16 20:15) Sulfamet-Trimeth Ds 800-160 Mg (Bactrim (12/20/16 20:15) Labs Laboratory Tests Test 12/20/16 12/20/16 12/20/16 18:30 18:40 19:05 Urine Color RED Urine Turbidity CLOUDY Urine pH 6.0 Urine Specific [place] 1.014 Urine Protein 100 mg/dL Urine Glucose (UA) NEG mg/dL Urine Ketones NEG mg/dL Urine Occult Blood LARGE Urine Nitrite NEG Urine Bilirubin NEG Urine Leukocyte Esterase MOD Urine RBC INNUM /hpf Urine WBC 15-19 /hpf Urine WBC Clumps OCC Urine Squamous Epithelial 0-5 /hpf Cells Microscopic Urinalysis Comment CULTURE INDICATED White Blood Count 6.3 TH/MM3 Red Blood Count 4.51 MIL/MM3 Hemoglobin 13.0 GM/DL Hematocrit 38.6 % Mean Corpuscular Volume 85.5 FL Mean Corpuscular Hemoglobin 28.9 PG Mean Corpuscular Hemoglobin 33.8 % Concent Red Cell Distribution Width 12.6 % Platelet Count 183 TH/MM3 Mean Platelet Volume 8.1 FL Neutrophils (%) (Auto) 66.6 % Lymphocytes (%) (Auto) 24.7 % Monocytes (%) (Auto) 6.4 % Eosinophils (%) (Auto) 1.4 % Basophils (%) (Auto) 0.9 % Neutrophils # (Auto) 4.2 TH/MM3 Lymphocytes # (Auto) 1.5 TH/MM3 Monocytes # (Auto) 0.4 TH/MM3 Eosinophils # (Auto) 0.1 TH/MM3 Basophils # (Auto) 0.1 TH/MM3 CBC Comment DIFF FINAL Differential Comment Prothrombin Time 10.0 SEC Prothromb Time International 0.9 RATIO Ratio Activated Partial 23.9 SEC Thromboplast Time Sodium Level 139 MEQ/L Potassium Level 3.6 MEQ/L Chloride Level 106 MEQ/L Carbon Dioxide Level 27.6 MEQ/L Anion Gap 5 MEQ/L Blood Urea Nitrogen 9 MG/DL Creatinine 0.74 MG/DL Estimat Glomerular Filtration 94 ML/MIN Rate Random Glucose 81 MG/DL Calcium Level 8.5 MG/DL Total Bilirubin 0.2 MG/DL Aspartate Amino Transf 16 U/L (AST/SGOT) Alanine Aminotransferase 37 U/L (ALT/SGPT) Alkaline Phosphatase 38 U/L Total Protein 7.2 GM/DL Albumin 3.5 GM/DL Lipase 265 U/L Clue Cells (Wet Prep) NONE SEEN Vaginal Trichomonas (Wet Prep) NONE SEEN Vaginal Yeast (Wet Prep) NONE SEEN MDM Medical Decision Making Medical Screen Exam Complete: Yes Emergency Medical Condition: Yes Differential Diagnosis Appendicitis, cystitis, UTI, PID, TOA, ovarian cyst, ovarian torsion unlikely Narrative Course Vital signs are within normal limits. CBC is unremarkable. CMP is unremarkable. UA is suggestive of UTI. Wet prep is negative for yeast, negative for Trichomonas, negative for clue cells. CT abdomen pelvis: CONCLUSION: 1. No acute abnormality. 2. Prior cholecystectomy. 3. Appendix normal by CT criteria. Patient was made aware of all findings. She is resting comfortably. She states that her symptoms feel similar to the past when she has had PID and is requesting empiric treatment. She will also be started on Bactrim for her UTI. She has an appointment with her OPERATION AGENT doctor tomorrow. She was informed on when to return to the emergency department. She verbalizes understanding and agreement with plan. Diagnosis Primary Impression: UTI (urinary tract infection) Qualified Code: N39.0 - Urinary tract infection with hematuria, site unspecified Additional Impression: Pelvic pain Referrals: [facility] 1 day Additional Instructions: Follow-up with your OPERATION AGENT doctor tomorrow as scheduled. Return to the emergency department for worsening symptoms or any other concerns. Scripts Phenazopyridine (Pyridium)100 Mg [id number] Mg PO Q8H PRN (DYSURIA) #15 TAB Ref 0 Prov:Kojo Ann MD 12/20/16 Sulfamethoxazole-Trimethoprim (Bactrim DS)800-160 Mg Tab1 Tab PO BID #14 TAB Ref 0 Prov:Kojo Ann MD 12/20/16 Disposition: 01 DISCHARGE HOME Condition: Stable Kojo Ann MD December 20, 2016 18:40
[2016-12-20] MEDS: SODIUM CHLORIDE 0.9% FLUSH 10 ML FLUSH IV FLUSH PRN ×2 (18:47→19:36)
[2016-12-20 18:52] LABS: AUTOMATED NEUTROPHIL # 4.2 TH/MM3 (1.8-7.7); BASOPHIL # 0.1 TH/MM3 (0-0.2); BASOPHIL % 0.9 % (0.0-2.0); EOSINOPHIL # 0.1 TH/MM3 (0-0.4); EOSINOPHIL % 1.4 % (0.0-4.0); HEMATOCRIT 38.6 % (35.0-46.0); HEMO FLAGS DIFF FINAL; LYMPH % 24.7 % (9.0-44.0); LYMPHOCYTE # 1.5 TH/MM3 (1.0-4.8); MEAN CELL VOLUME 85.5 FL (80.0-100.0); MEAN CORPUSCULAR HEMOGLOBIN 28.9 PG (27.0-34.0); MEAN CORPUSCULAR HGB CONC 33.8 % (32.0-36.0); MONO % 6.4 % (0.0-8.0); NEUT % 66.6 % (16.0-70.0); PLATELET COUNT 183 TH/MM3 (150-450); RED BLOOD COUNT 4.51 MIL/MM3 (4.00-5.30); RED CELL DISTRIBUTION WIDTH 12.6 % (11.6-17.2); WHITE BLOOD COUNT 6.3 TH/MM3 (4.0-11.0)
[2016-12-20 18:54] LABS: BLOOD, URINE LARGE (NEG); GLUCOSE,URINE NEG (NEG); KETONE, URINE NEG (NEG); NITRITE,URINE NEG (NEG)
[2016-12-20 19:02] LABS: URINE COLOR RED (YELLW/STRAW)
[2016-12-20 19:03] LABS: COMMENT (UR) CULTURE INDICATED; CULTURE IF INDICATED CULTURE INDICATED; RBC, URINE INNUM /hpf (0-3); SQUAMOUS EPITHELIAL CELL URINE 0-5 /hpf (0-5); WBC, URINE 15-19 /hpf (0-5)
[2016-12-20 19:04] LABS: APTT (PATIENT) 23.9 SEC (24.3-30.1); CHLORIDE 106 MEQ/L (98-107); INTERNATIONAL NORMALIZED RATIO 0.9 RATIO; POTASSIUM 3.6 MEQ/L (3.5-5.1); SODIUM (NA) 139 MEQ/L (136-145)
[2016-12-20 19:08] LABS: ANION GAP 5 MEQ/L (5-15); BICARBONATE 27.6 MEQ/L (21.0-32.0)
[2016-12-20 19:09] LABS: BLOOD UREA NITROGEN 9 MG/DL (7-18)
[2016-12-20 19:11] LABS: ALT (GPT) 37 U/L (10-53); AST (GOT) 16 U/L (15-37); GLOMERULAR FILTRATION RATE 94 ML/MIN (>89)
[2016-12-20 19:13] LABS: TOTAL BILIRUBIN ADULT 0.2 MG/DL (0.2-1.0)
[2016-12-20 19:14] LABS: ALKALINE PHOSPHATASE 38 U/L (45-117)
[2016-12-20] MEDS ORDERED: PHENAZOPYRIDINE HCL 200 MG TAB PO ONE (19:15)
[2016-12-20] MEDS ORDERED: MORPHINE SULFATE 4 MG/ML INJ IV PUSH ONE (19:15)
[2016-12-20] MEDS ORDERED: BENZ1CAP34 PO (19:43)
[2016-12-20] MEDS ORDERED: ALBUAER3 INH (19:43)
--- NOTE | 2016-12-20 19:52 | RADHPO ---
EXAM DATE/TIME: 12/20/2016 19:09 [facility] COMPARISON: No previous studies available for comparison. INDICATIONS : Right lower quadrant pain. Gross hematuria. IV CONTRAST: 100 cc Omnipaque 350 (iohexol) IV ORAL CONTRAST: No oral contrast ingested. RADIATION DOSE: 14.44 CTDIvol (mGy) MEDICAL HISTORY : Endometriosis. Poly cystic ovarian syndrome. SURGICAL HISTORY : Cholecystectomy. Laprotomy. ENCOUNTER: Initial ACUITY: 1 day PAIN SCALE: 6/10 LOCATION: Right lower quadrant TECHNIQUE: Volumetric scanning of the abdomen and pelvis was performed. Using automated exposure control and ad justment of the mA and/or kV according to patient size, radiation dose was kept as low as reasonably achievable to obtain optimal diagnostic quality images. FINDINGS: LOWER LUNGS: The visualized lower lungs are clear. LIVER: Homogeneous density without lesion. There is no dilation of the biliary tree. Prior cholecystectomy. SPLEEN: Normal size without lesion. PANCREAS: Within normal limits. KIDNEYS: Normal in size and shape. There is no mass, stone or hydronephrosis. ADRENAL GLANDS: Within normal limits. VASCULAR: There is no aortic aneurysm. BOWEL/MESENTERY: The stomach, small bowel, and colon demonstrate no acute abnormality. There is no free intraperitone al air or fluid. The appendix is normal by CT criteria. ABDOMINAL WALL: Within normal limits. RETROPERITONEUM: There is no lymphadenopathy. BLADDER: No wall thickening or mass. REPRODUCTIVE: Within normal limits. INGUINAL: There is no lymphadenopathy or hernia. MUSCULOSKELETAL: Within normal limits for patient age. CONCLUSION: 1. No acute abnormality. 2. Prior cholecystectomy. 3. Appendix normal by CT criteria. Rupert Moody Jr., MD on December 20, 2016 at 19:47 Board Certified Radiologist. This report was verified electronically.
[2016-12-20] MEDS ORDERED: IOHEXOL 350 MG/ML 10 ML VIAL (for RAD DIAG) IV ONE (20:04)
[2016-12-20] MEDS ORDERED: PHEN0.4T PO (20:10)
[2016-12-20] MEDS ORDERED: BACT800T5 PO (20:10)
[2016-12-20] MEDS ORDERED: LIDOCAINE HCL 1% 50 ML VIAL IM ONE (20:15)
[2016-12-20] MEDS ORDERED: AZITHROMYCIN PWD FOR SUSP 1 GM PACKET PO ONE (20:15)
[2016-12-20] MEDS ORDERED: SULFAMETHOXAZOLE-TRIMETHOPRIM DS 800-160 MG TAB PO ONE (20:15)
[2016-12-20] MEDS ORDERED: cefTRIAXone 250 MG VIAL IM ONE (20:15)
[2016-12-20 21:13] VITALS: BP 119/72
[2016-12-21 00:01] LABS: CHLAMYDIA PCR NOT DETECTED (NOT DETECT); NEISSERIA PCR NOT DETECTED (NOT DETECT)
== END 2016-12-20 21:11 | disposition home or self-care (01) ==
LOC: PHED 17:31
DX: N39.0 Urinary tract infection, site not specified (principal); J45.909 Unspecified asthma, uncomplicated; F41.9 Anxiety disorder, unspecified; Z79.899 Other long term (current) drug therapy; Z88.5 Allergy status to narcotic agent
CPT/HCPCS: 74177; 80053; 81001; 83690; 84703; 85025; 85610; 85730; 87077; 87086; 87186; 87210; 87491; 87591; 96361; 96372; 96374; 99285; J0696; J2270; J7030; Q9967

== ENCOUNTER 2017-01-23 15:27 | Emergency (ER) | payer BC ==
[~2017-01-23] VITALS: Ht 152.4 cm; Wt 74.0 kg
[~2017-01-23 15:27] MED LIST changes: +ALBUAER3 INH; -AZIT500T2 PO; +BACT800T5 PO; +BENZ1CAP34 PO; -DICL75TA PO; -HYDR-3533 PO; +PHEN0.4T PO; -PRED20 PO
[2017-01-23 15:29] VITALS: BP 121/74; PULSE 84; RESP 16; TEMP 98.4; O2SAT 100
[2017-01-23] MEDS ORDERED: SODIUM CHLOR 0.9% 1000 ML INJ 1,000 ML IV SCH (15:56)
[2017-01-23] MEDS ORDERED: cefTRIAXone INJ 1,000 MG in SODIUM CHLORIDE 0.9% INJ 100 ML IV ONE (16:00)
[2017-01-23] MEDS ORDERED: KETOROLAC TROMETHAMINE 30 MG/ML (IVP) VIAL IVP ONE (16:00)
[2017-01-23 16:08] VITALS: O2SAT 100
[2017-01-23] MEDS ORDERED: TERC0.4C2 VAGINAL (16:11)
[2017-01-23] MEDS ORDERED: NAPR500T PO (16:11)
--- NOTE | 2017-01-23 16:16 | PD ---
HPI Chief Complaint: Stand Grinder Problem/Complaint Time Seen by Provider: 15:44 Travel History International Travel<30 days: No Contact w/Intl Traveler<30days: No Traveled to known affect area: No History of Present Illness HPI YOUNG LADY HAS HAD MULTIPLE PROCEDURES FOR HER ENDOMETRIOSIS, AND HAS FREQUENT CASES OF PID. PATIENT JUST SAW HER PRIMARY OBGYN WHO STATED THAT THERE IS PELVIC ORGAN SWELLING AND STARTED HER ON ANTIFUNGAL CREAM. NOW PATIENT IS STILL HAVING PAIN AND NOW DIFFICULTY VOIDING WELL DESPITE THE FACT THAT SHE JUST FINISHED BACTRIM FOR UTI ON MONDAY/MONDAY. PATIENT DENIES ANY ACTUAL VAGINAL DISCHARGE, C/O SUPRAPUBIC SHARP PAIN 12/31. PFSH Past Medical History Hx Anticoagulant Therapy: No Asthma: Yes Anxiety: Yes Diabetes: No Diminished Hearing: No Gastrointestinal Disorders: Yes (shivam) Genitourinary: Yes (HERPES, ovarian cysts) Reproductive: Yes (endometriosis, + HPV) Immunizations Current: Yes Tetanus Vaccination: < 5 Years Influenza Vaccination: Yes ?: Not : 0 Ectopic : No Ovarian Cysts: Yes (PCOS) Past Surgical History Cholecystectomy: Yes Gynecologic Surgery: Yes (laprotomy) Hysterectomy: No Other Surgery: Yes (deviated septum in nose) Social History Alcohol Use: Yes (RARE) Tobacco Use: No Substance Use: No Allergies-Medications (Allergen,Severity, Reaction): Coded Allergies: Codeine (Verified Allergy, Severe, ACTS CRAZY..., 01/23/17) Lortab (Verified Allergy, Intermediate, HIVES, 01/23/17) Reported Meds & Prescriptions Reported Meds & Active Scripts Active Diflucan (Fluconazole) 100 Mg Tab 100 Mg PO DAILY Flagyl (Metronidazole) 500 Mg Tab 500 Mg PO TID Ciprofloxacin (Ciprofloxacin HCl) 500 Mg Tab 500 Mg PO BID Zithromax (Azithromycin) 500 Mg Tab 500 Mg PO BID Pyridium (Phenazopyridine HCl) 100 Mg Tab 100 Mg PO Q8HR Reported Naproxen 500 Mg Tab 500 Mg PO BID Terconazole Vaginal Cream 0.4 % Cream 1 Appl VAGINAL HS For seven days Proair Hfa 8.5 GM Inh (Albuterol Sulfate) 90 Mcg/Act Aer 2 Puff INH Q4-6H PRN 108 mcg/actuation Benzonatate 200 Mg Cap 200 Mg PO TID PRN Acyclovir 400 Mg Tab 400 Mg PO DAILY Tramadol (Tramadol HCl) 50 Mg Tab 50 Mg PO Q4H PRN Lorazepam 0.5 Mg Tab 0.5 Mg PO DAILY PRN Escitalopram (Escitalopram Oxalate) 10 Mg Tab 10 Mg PO DAILY Nortrel 1/35 (Norethindrone-Ethinyl Estradiol) 1-35 Mg-Mcg Tab 1 Tab PO DAILY Review of Systems Genitourinary: Positive: Urgency, Frequency, Dysuria, Other (SUPRAPUBIC TTP) Physical Exam Narrative GENERAL: SKIN: Warm and dry. HEAD: Atraumatic. Normocephalic. EYES: Pupils equal and round. No scleral icterus. No injection or drainage. ENT: No nasal bleeding or discharge. Mucous membranes pink and moist. NECK: Trachea midline. No JVD. CARDIOVASCULAR: Regular rate and rhythm. RESPIRATORY: No accessory muscle use. Clear to auscultation. Breath sounds equal bilaterally. GASTROINTESTINAL: Abdomen soft, MILD SUPRAPUBIC TTP, nondistended. MUSCULOSKELETAL: Extremities without clubbing, cyanosis, or edema. No obvious deformities. NEUROLOGICAL: Awake and alert. No obvious cranial nerve deficits. Motor grossly within normal limits. Five out of 5 muscle strength in the arms and legs. Normal speech. PSYCHIATRIC: Appropriate mood and affect; insight and judgment normal. Data Data Last Documented VS Vital Signs Date Time Temp Pulse Resp B/P Pulse Ox O2 Delivery O2 Flow Rate FiO2 01/23/17 16:08 100 Room Air 01/23/17 15:29 98.4 84 16 121/74 Orders Complete Blood Count With Diff (01/23/17 15:56) Comprehensive Metabolic Panel (01/23/17 15:56) Lipase (01/23/17 15:56) Urinalysis - C+S If Indicated (01/23/17 15:56) Iv Access Insert/Monitor (01/23/17 15:56) Oximetry (01/23/17 15:56) Us Pelvis Comp Stand Grinder/Non-Preg (01/23/17 ) NPO (01/23/17 15:56) Ceftriaxone Inj (Rocephin Inj) (01/23/17 16:00) Sodium Chlor 0.9% 1000 Ml Inj (Ns 1000 M (01/23/17 15:56) Ketorolac Inj (Toradol Inj) (01/23/17 16:00) Ed Urine Pregnancytest Poc (01/23/17 15:56) Bladder/Catheter Irrigation (01/23/17 15:56) Urinary Catheter Insert/Apply (01/23/17 16:18) Lidocaine 2% Jelly (Xylocaine 2% Jelly) (01/23/17 18:15) Labs Laboratory Tests Test 01/23/17 01/23/17 16:30 16:55 White Blood Count 4.4 TH/MM3 Red Blood Count 4.43 MIL/MM3 Hemoglobin 12.9 GM/DL Hematocrit 37.5 % Mean Corpuscular Volume 84.8 FL Mean Corpuscular Hemoglobin 29.1 PG Mean Corpuscular Hemoglobin 34.4 % Concent Red Cell Distribution Width 11.4 % Platelet Count 176 TH/MM3 Mean Platelet Volume 7.5 FL Neutrophils (%) (Auto) 51.3 % Lymphocytes (%) (Auto) 38.5 % Monocytes (%) (Auto) 8.9 % Eosinophils (%) (Auto) 0.7 % Basophils (%) (Auto) 0.6 % Neutrophils # (Auto) 2.3 TH/MM3 Lymphocytes # (Auto) 1.7 TH/MM3 Monocytes # (Auto) 0.4 TH/MM3 Eosinophils # (Auto) 0.0 TH/MM3 Basophils # (Auto) 0.0 TH/MM3 CBC Comment DIFF FINAL Differential Comment Sodium Level 145 MEQ/L Potassium Level 4.0 MEQ/L Chloride Level 109 MEQ/L Carbon Dioxide Level 27.4 MEQ/L Anion Gap 9 MEQ/L Blood Urea Nitrogen 6 MG/DL Creatinine 0.65 MG/DL Estimat Glomerular Filtration 109 ML/MIN Rate Random Glucose 80 MG/DL Calcium Level 8.8 MG/DL Total Bilirubin 0.2 MG/DL Aspartate Amino Transf 11 U/L (AST/SGOT) Alanine Aminotransferase 22 U/L (ALT/SGPT) Alkaline Phosphatase 36 U/L Total Protein 7.0 GM/DL Albumin 3.5 GM/DL Lipase 228 U/L Urine Color YELLOW Urine Turbidity CLEAR Urine pH 6.5 Urine Specific [place] 1.010 Urine Protein NEG mg/dL Urine Glucose (UA) NEG mg/dL Urine Ketones NEG mg/dL Urine Occult Blood NEG Urine Nitrite NEG Urine Bilirubin NEG Urine Leukocyte Esterase NEG Urine WBC 0-2 /hpf Urine Squamous Epithelial 0-5 /hpf Cells Urine Mucus FEW /lpf Microscopic Urinalysis Comment CULT NOT INDICATED MDM Medical Decision Making Medical Screen Exam Complete: Yes Emergency Medical Condition: Yes Medical Record Reviewed: Yes Differential Diagnosis UTI V TOA V PID V ENDOMETRIOSIS Narrative Course ULTRASOUND SHOWED NO E/O TOA/ENDOMETRIOSIS....UA NEG FOR UTI, SUSPECTED PID WITHOUT TOA, WILL GIVE ABX PLUS DIFLUCAN ONCE WEEKLY FOR 6 WEEKS. Diagnosis Primary Impression: PELVIC PAIN NOS Scripts Tramadol (Ultram)50 Mg Tab50 Mg PO Q4H PRN (PAIN) #28 TAB Prov:Jake Ge MD 01/23/17 Fluconazole (Diflucan)100 Mg [id number] Mg PO DAILY #6 TAB Ref 0 Prov:Jake Ge MD 01/23/17 Metronidazole (Flagyl)500 Mg [id number] Mg PO TID #21 TAB Prov:Jake Ge MD 01/23/17 Ciprofloxacin 500 Mg Plc129 Mg PO BID #14 TAB Prov:Jake Ge MD 01/23/17 Azithromycin (Zithromax)500 Mg Cck272 Mg PO BID #12 TAB Ref 0 Prov:Jake Ge MD 01/23/17 Phenazopyridine (Pyridium)100 Mg [id number] Mg PO Q8HR #21 TAB Ref 0 Prov:Jake Ge MD 01/23/17 Disposition: 01 DISCHARGE HOME Condition: Stable Jake Ge MD Jan 23, 2017 16:16
[2017-01-23 16:36] LABS: AUTOMATED NEUTROPHIL # 2.3 TH/MM3 (1.8-7.7); BASOPHIL % 0.6 % (0.0-2.0); EOSINOPHIL % 0.7 % (0.0-4.0); HEMATOCRIT 37.5 % (35.0-46.0); HEMO FLAGS DIFF FINAL; LYMPH % 38.5 % (9.0-44.0); LYMPHOCYTE # 1.7 TH/MM3 (1.0-4.8); MEAN CELL VOLUME 84.8 FL (80.0-100.0); MEAN CORPUSCULAR HEMOGLOBIN 29.1 PG (27.0-34.0); MEAN CORPUSCULAR HGB CONC 34.4 % (32.0-36.0); MONO % 8.9 % (0.0-8.0); NEUT % 51.3 % (16.0-70.0); PLATELET COUNT 176 TH/MM3 (150-450); RED BLOOD COUNT 4.43 MIL/MM3 (4.00-5.30); RED CELL DISTRIBUTION WIDTH 11.4 % (11.6-17.2); WHITE BLOOD COUNT 4.4 TH/MM3 (4.0-11.0)
[2017-01-23 16:44] LABS: CHLORIDE 109 MEQ/L (98-107); SODIUM (NA) 145 MEQ/L (136-145)
[2017-01-23 16:48] LABS: ANION GAP 9 MEQ/L (5-15); BICARBONATE 27.4 MEQ/L (21.0-32.0); BLOOD UREA NITROGEN 6 MG/DL (7-18)
[2017-01-23 16:51] LABS: ALT (GPT) 22 U/L (10-53); AST (GOT) 11 U/L (15-37); GLOMERULAR FILTRATION RATE 109 ML/MIN (>89)
[2017-01-23 16:52] LABS: TOTAL BILIRUBIN ADULT 0.2 MG/DL (0.2-1.0)
[2017-01-23 16:54] LABS: ALKALINE PHOSPHATASE 36 U/L (45-117)
[2017-01-23 17:01] LABS: BLOOD, URINE NEG (NEG); GLUCOSE,URINE NEG (NEG); KETONE, URINE NEG (NEG); NITRITE,URINE NEG (NEG); PH, URINE 6.5 (5.0-8.5)
[2017-01-23 17:15] LABS: URINE COLOR YELLOW (YELLW/STRAW)
[2017-01-23 17:16] LABS: COMMENT (UR) CULT NOT INDICATED; CULTURE IF INDICATED CULT NOT INDICATED; MUCUS URINE FEW /lpf (OCC); SQUAMOUS EPITHELIAL CELL URINE 0-5 /hpf (0-5); WBC, URINE 0-2 /hpf (0-5)
[2017-01-23] MEDS ORDERED: LIDOCAINE 2% JELLY 30 ML TUBE TOPICAL ONE (18:15)
--- NOTE | 2017-01-23 18:15 | RADRPT ---
EXAM DATE/TIME: 01/23/2017 17:08 [facility] COMPARISON: No previous studies available for comparison. INDICATIONS : Pelvic pain, recurrent infections. Evaluate for tubo-ovarian abscess. MEDICAL HISTORY : Polycystic ovary disease. Endometriosis. SURGICAL HISTORY : Cholecystectomy. Laporoscopic. ENCOUNTER: Initial ACUITY: > 1 year PAIN SCORE: 5/10 LOCATION: Bilateral pelvis MEASUREMENTS: UTERUS: 7.3 x 4.9 x 3.5 cm ENDOMETRIAL STRIPE: 7 mm RIGHT OVARY: 3.2 x 1.8 x 1.4 cm LEFT OVARY: 3.5 x 1.7 x 1.5 cm FINDINGS: Urinary bladder was distended through an indwelling Wilder catheter. UTERUS: The myometrium has homogeneous echotexture without mass. RIGHT OVARY: Ovary contains no mass or significant cystic lesion. LEFT OVARY: Ovary contains no mass or significant cystic lesion. MISCELLANEOUS: No free fluid. CONCLUSION: Negative transabdominal pelvic ultrasound. Rupert Gallardo MD on January 23, 2017 at 18:10 Board Certified Radiologist. This report was verified electronically.
[2017-01-23] MEDS ORDERED: PHEN0.4T PO (18:27)
[2017-01-23] MEDS ORDERED: ZITH500T PO (18:27)
[2017-01-23] MEDS ORDERED: CIPR500T2 PO (18:30)
[2017-01-23] MEDS ORDERED: METR-1 PO (18:30)
[2017-01-23] MEDS ORDERED: DIFL100T PO (18:30)
[2017-01-23] MEDS ORDERED: ULTR50TA5 PO (18:32)
[2017-01-23 19:15] VITALS: BP 133/86; PULSE 82; RESP 16; O2SAT 100
[2017-01-23 19:27] VITALS: RESP 16
[2017-01-23] MEDS ORDERED: oxyCODONE/ACETAMINOPHEN 7.5 MG/325 MG TAB PO ONE (20:00)
== END 2017-01-23 20:29 | disposition home or self-care (01) ==
LOC: PHED 15:27
DX: R10.2 Pelvic and perineal pain (principal)
CPT/HCPCS: 51700; 76856; 80053; 81001; 83690; 84703; 85025; 96361; 96365; 96375; 99285; J0696; J1885; J7030

== ENCOUNTER 2017-05-30 18:03 | Emergency (ER) | payer BC ==
[~2017-05-30] VITALS: Ht 152.4 cm; Wt 77.0 kg
[~2017-05-30 18:03] MED LIST changes: -BACT800T5 PO; -BENZ1CAP34 PO; +BENZ1CAP51 PO; +CIPR500T2 PO; +DIFL100T PO; -LORA-373 PO; +LORA0.5T PO; +METR-1 PO; +NAPR500T2 PO; +TERC0.4C2 VAGINAL; +TRAM50 PO; +ZITH500T PO
[2017-05-30 18:17] VITALS: BP 114/72; PULSE 84; RESP 16; TEMP 98.4; O2SAT 99
[2017-05-30 18:40] LABS: BLOOD, URINE NEG (NEG); GLUCOSE,URINE NEG (NEG); KETONE, URINE NEG (NEG); NITRITE,URINE NEG (NEG)
[2017-05-30 18:56] LABS: URINE COLOR YELLOW (YELLW/STRAW)
[2017-05-30 18:57] LABS: COMMENT (UR) CULT NOT INDICATED; CULTURE IF INDICATED CULT NOT INDICATED; SQUAMOUS EPITHELIAL CELL URINE 0-5 /hpf (0-5)
[2017-06-02] MEDS ORDERED: VALA1TAB PO (09:18)
[2017-06-07] MEDS ORDERED: CEPH-460 PO (12:55)
[2017-06-07] MEDS ORDERED: OXYC1CAP PO (12:55)
== END 2017-05-30 19:31 | disposition left against medical advice (07) ==
LOC: PHED 18:03
DX: R33.9 Retention of urine, unspecified (principal)
CPT/HCPCS: 81001; 99281

== ENCOUNTER → 2017-06-07 | Day surgery (SDC) | payer BC ==
[~2017-06-07] VITALS: Ht 152.4 cm; Wt 78.0 kg
[~2017-06-07] MED LIST changes: +BUPIVACAINE HCL PF 0.5% 30 ML VIAL ONE; +CEPH-460 PO; +CHLORHEXIDINE GLUCONATE 2 % 1 PACK (2 CLOTHS) TOPICAL PRN; +INSULIN HUMAN REGULAR 1,000 UNITS/10 ML VIAL SQ PRN; +LACTATED RINGER'S 1000 ML IV PRN; +LIDOCAINE HCL 2% 50 ML VIAL ONE; +METOPROLOL TARTRATE 25 MG TAB PO PRN; +NEOMYCIN/POLYMYXIN 1 ML G.U. IRRIGANT ONE; +ONDANSETRON HCL 4 MG/2 ML VIAL IV PUSH ONE; +OXYC1CAP PO; +POVIDONE IODINE 5% (ANTISEPSIS KIT) 4 APPLICATIONS EACH NARE PRN; +PROPOFOL 200 MG/20 ML AMP IV ONE; +SODIUM CHLORID 0.9% 500 ML IV PRN; +VALA1TAB PO; +ceFAZolin 1,000 MG/NS 100 ML IV SCH
[2017-06-07 12:44] VITALS: PULSE 65
--- NOTE | 2017-06-07 13:23 | MP ---
cc: CAM MORIN III, M.D. 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 PROCEDURE 1. Left middle finger distal phalanx curettage and bone grafting. 2. Use of image intensifier. SURGEON Cam Morin III, MD DETAILS OF PROCEDURE The patient was brought to the operating room and placed on the operating table. After the correct site and side of surgery were verified by members of each team in the room multiple times including the patient and myself and after adequate preoperative timeout and preoperative general anesthesia had been achieved, local anesthetic was injected into the palm on the ulnar side of the middle finger as a digital block. The limb was elevated and pressure was held on the brachial artery for one minute and a highly placed well-padded axillary tourniquet was inflated to 200 mmHg for a total of 20 minutes. A longitudinally oriented incision over the ulnar side of the distal phalanx was made and blunt dissection was performed down to the distal phalanx. A window was made in the side of the bone and using a curet the entire side of the bone was scraped and all of the white gel-like contents were excavated and passed off the field as a specimen. This was all done using the C-arm real-time fluoroscopy with guidance. Thorough irrigation was performed. Using Norian bone graft cement the cavity was then filled and pressure was held. The axillary tourniquet was released. The hand and all the fingers including the middle finger became immediately soft, pink and warm. Pressure was held for five minutes. Irrigation was again performed. An osteoplasty by compression was then done to try to decrease the prominence of the bone which did have some palpable result. This was again held until the cement had enough time to set and the skin edges were re-approximated using interrupted 4-0 nylon sutures. The hand and arm were thoroughly cleansed and dried. Final x-rays were obtained. Betadine and Adaptic dressing was applied atop the wound followed by a well-padded, well-molded bulky short-arm radial gutter splint. The patient was awakened from anesthesia and transported to the post-anesthesia care unit awake and in stable condition at the end of the case. MD MELVINA Restrepo III /1:03 PM /1:15 PM
[2017-06-07 13:45] VITALS: BP 116/77; PULSE 65; RESP 16; TEMP 98; O2SAT 100
== END | disposition home or self-care (01) ==
LOC: PHSDC 07:55
PROVIDERS: ATTEND Orthopaedic Surgery Hand Surgery
DX: D49.2 Neoplasm of unspecified behavior of bone, soft tissue, and skin (principal)
CPT/HCPCS: 01830; 26210; 88307; J0690; J2405; J3010; J7120; 88305

== ENCOUNTER 2017-09-11 07:25 | Emergency (ER) | payer SELFPAY ==
[~2017-09-11] VITALS: Ht 152.4 cm; Wt 80.0 kg
[~2017-09-11 07:25] MED LIST changes: -ACYC400T PO; -ALBUAER3 INH; -BENZ1CAP51 PO; -BUPIVACAINE HCL PF 0.5% 30 ML VIAL ONE; -CEPH-460 PO; -CHLORHEXIDINE GLUCONATE 2 % 1 PACK (2 CLOTHS) TOPICAL PRN; +CIPR-9 PO; +CIPR250T52 PO; -CIPR500T2 PO; -DIFL100T PO; -INSULIN HUMAN REGULAR 1,000 UNITS/10 ML VIAL SQ PRN; -LACTATED RINGER'S 1000 ML IV PRN; -LIDOCAINE HCL 2% 50 ML VIAL ONE; -LORA0.5T PO; -METOPROLOL TARTRATE 25 MG TAB PO PRN; -METR-1 PO; -NAPR500T2 PO; -NEOMYCIN/POLYMYXIN 1 ML G.U. IRRIGANT ONE; -NORT1TAB PO; -ONDANSETRON HCL 4 MG/2 ML VIAL IV PUSH ONE; -PHEN0.4T PO; -POVIDONE IODINE 5% (ANTISEPSIS KIT) 4 APPLICATIONS EACH NARE PRN; -PROPOFOL 200 MG/20 ML AMP IV ONE; -SODIUM CHLORID 0.9% 500 ML IV PRN; -TERC0.4C2 VAGINAL; -TRAM50 PO; -TRAM50TA PO; -ZITH500T PO; -ceFAZolin 1,000 MG/NS 100 ML IV SCH
[2017-09-11 07:42] VITALS: BP 134/72; PULSE 88; RESP 16; TEMP 98.5; O2SAT 99
[2017-09-11 07:52] LABS: BILIRUBIN, URINE NEG (NEG); BLOOD, URINE LARGE (NEG); GLUCOSE,URINE NEG (NEG); KETONE, URINE NEG (NEG); NITRITE,URINE NEG (NEG); PH, URINE 5.5 (5.0-8.5); URINE LEUKOCYTE ESTERASE SMALL (NEG)
[2017-09-11 08:07] LABS: URINE COLOR STRAW (YELLW/STRAW)
[2017-09-11 08:08] LABS: BACTERIA, URINE FEW /hpf; SQUAMOUS EPITHELIAL CELL URINE 0-5 /hpf (0-5)
--- NOTE | 2017-09-11 08:34 | PD ---
HPI Chief Complaint: Complaint Time Seen by Provider: 08:26 Travel History International Travel<30 days: No Contact w/Intl Traveler<30days: No Traveled to known affect area: No History of Present Illness HPI 27-year-old female with history of total abdominal hysterectomy here for evaluation of dysuria, vaginal burning, and lower back/flank pain. Symptoms started this morning. She has not noticed any vaginal discharge. No fevers. Back pain is mild, cramping, no modifying factors. She is sexually active with one partner and believe she is in a monogamous relationship and uses protection as she has a history of genital herpes. She denies history of any other pelvic infections. PFSH Past Medical History Hx Anticoagulant Therapy: No Asthma: Yes Anxiety: Yes Cancer: No Cardiovascular Problems: No Diabetes: No Diminished Hearing: No Endocrine: No Gastrointestinal Disorders: Yes (shivam) Genitourinary: Yes (CHRONIC UTI) Hepatitis: No Hiatal Hernia: No Immune Disorder: No Musculoskeletal: Yes (R CARPAL TUNNEL) Neurologic: No Psychiatric: Yes (ANXIETY, DEPRESSION) Reproductive: Yes (HERPES, HX HPV & ENDOMETRIOSIS (HYSTERECTOMY)) Respiratory: No Immunizations Current: Yes Thyroid Disease: No ?: Not : 0 Ectopic : No Ovarian Cysts: Yes (PCOS) Past Surgical History Abdominal Surgery: Yes (SHIVAM) AICD: No Cholecystectomy: Yes Gynecologic Surgery: Yes (laprotomy, HYSTERECTOMY) Hysterectomy: Yes Joint Replacement: No Pacemaker: No Other Surgery: Yes (deviated septum in nose) Social History Alcohol Use: Yes (RARE) Tobacco Use: No Substance Use: No Allergies-Medications (Allergen,Severity, Reaction): Coded Allergies: codeine (Verified Allergy, Severe, ACTS CRAZY..., 09/11/17) acetaminophen (Verified Allergy, Intermediate, Itching, 09/11/17) hydrocodone (Verified Allergy, Intermediate, Itching, 09/11/17) Reported Meds & Prescriptions Reported Meds & Active Scripts Active Reported Escitalopram (Escitalopram Oxalate) 10 Mg Tab 10 Mg PO DAILY Review of Systems Except as stated in HPI: all other systems reviewed are Neg Physical Exam Narrative GENERAL: Well-developed, well-nourished, comfortable, no apparent distress. SKIN: Focused skin assessment warm/dry. No rash. HEAD: Atraumatic. Normocephalic. EYES: Pupils equal and round. No scleral icterus. No injection or drainage. ENT: Mucous membranes pink and moist. NECK: Trachea midline. No JVD. CARDIOVASCULAR: Regular rate and rhythm. No murmur appreciated. RESPIRATORY: No accessory muscle use. Clear to auscultation. Breath sounds equal bilaterally. GASTROINTESTINAL: Abdomen soft, non-tender, nondistended. BANKING ATTORNEY: Exam performed in the presence of a female nurse. Normal external genitalia. No cervix. No abnormal vaginal bleeding or discharge. MUSCULOSKELETAL: No obvious deformities. No clubbing. No cyanosis. No edema. Mild left CVA tenderness. No right CVA tenderness. No midline vertebral step- off or tenderness. NEUROLOGICAL: Awake and alert. No obvious cranial nerve deficits. Motor grossly within normal limits. Normal speech. PSYCHIATRIC: Appropriate mood and affect; insight and judgment normal. Data Data Last Documented VS Vital Signs Date Time Temp Pulse Resp B/P (MAP) Pulse Ox O2 Delivery O2 Flow Rate FiO2 09/11/17 09:45 89 17 116/73 (87) 98 Room Air 09/11/17 07:42 98.5 Orders Orders Urinalysis - C+S If Indicated (09/11/17 07:44) Urine Culture (09/11/17 07:40) Gc And Chlamydia Pcr (09/11/17 08:32) Wet Prep Profile (09/11/17 08:32) Complete Blood Count With Diff (09/11/17 09:05) Comprehensive Metabolic Panel (09/11/17 09:05) Ct Abd/Pel W/O Iv Contrast (09/11/17 09:05) Iv Access Insert/Monitor (09/11/17 09:05) Ecg Monitoring (09/11/17 09:05) Oximetry (09/11/17 09:05) Sodium Chloride 0.9% Flush (Ns Flush) (09/11/17 09:15) Ceftriaxone Inj (Rocephin Inj) (09/11/17 09:15) Phenazopyridine (Pyridium) (09/11/17 11:15) Labs Laboratory Tests Test 09/11/17 07:40 09/11/17 09:10 09/11/17 09:18 Urine Color STRAW Urine Turbidity CLEAR Urine pH 5.5 Urine Specific [place] 1.018 Urine Protein NEG mg/dL Urine Glucose (UA) NEG mg/dL Urine Ketones NEG mg/dL Urine Occult Blood LARGE Urine Nitrite NEG Urine Bilirubin NEG Urine Leukocyte Esterase SMALL Urine RBC 25-49 /hpf Urine WBC 20-24 /hpf Urine Squamous Epithelial Cells 0-5 /hpf Urine Bacteria FEW /hpf Microscopic Urinalysis Comment CULTURE INDICATED Clue Cells (Wet Prep) NONE SEEN Vaginal Trichomonas (Wet Prep) NONE SEEN Vaginal Yeast (Wet Prep) NONE SEEN White Blood Count 3.9 TH/MM3 Red Blood Count 4.84 MIL/MM3 Hemoglobin 13.4 GM/DL Hematocrit 40.6 % Mean Corpuscular Volume 83.8 FL Mean Corpuscular Hemoglobin 27.6 PG Mean Corpuscular Hemoglobin Concent 32.9 % Red Cell Distribution Width 11.4 % Platelet Count 166 TH/MM3 Mean Platelet Volume 8.4 FL Neutrophils (%) (Auto) 58.7 % Lymphocytes (%) (Auto) 32.1 % Monocytes (%) (Auto) 6.8 % Eosinophils (%) (Auto) 1.8 % Basophils (%) (Auto) 0.6 % Neutrophils # (Auto) 2.2 TH/MM3 Lymphocytes # (Auto) 1.2 TH/MM3 Monocytes # (Auto) 0.3 TH/MM3 Eosinophils # (Auto) 0.1 TH/MM3 Basophils # (Auto) 0.0 TH/MM3 CBC Comment DIFF FINAL Differential Comment Blood Urea Nitrogen 12 MG/DL Creatinine 0.69 MG/DL Random Glucose 107 MG/DL Total Protein 7.7 GM/DL Albumin 3.9 GM/DL Calcium Level 9.1 MG/DL Alkaline Phosphatase 75 U/L Aspartate Amino Transf (AST/SGOT) 28 U/L Alanine Aminotransferase (ALT/SGPT) 50 U/L Total Bilirubin 0.3 MG/DL Sodium Level 140 MEQ/L Potassium Level 3.9 MEQ/L Chloride Level 106 MEQ/L Carbon Dioxide Level 25.7 MEQ/L Anion Gap 8 MEQ/L Estimat Glomerular Filtration Rate 101 ML/MIN [facility] Medical Decision Making Medical Screen Exam Complete: Yes Emergency Medical Condition: Yes Differential Diagnosis UTI, cystitis, pallor nephritis, nephrolithiasis, vulvovaginal candidiasis, Trichomonas, BV, PID Narrative Course Vital signs show heart rate 88, blood pressure 134/72, pulse ox 99% on room air , oral temp of 98.5F. CBC: WBC 3.9, hemoglobin 13.4, hematocrit 40.6, platelets 166. CMP: Is unremarkable. UA: Large occult blood, small leukocyte esterase, 25-50 rbc's, 20-25 WBCs, few bacteria. Wet prep is negative for yeast, negative for clue cells, negative for Trichomonas. CT abdomen pelvis: CONCLUSION: 1. No acute abnormality in the abdomen or pelvis. 2. Specifically, no evidence for radiopaque renal calculi or obstructive uropathy. 3. Normal appendix. Patient was made aware of all findings. She showed me a picture of the toilet paper after urinating that showed some what appears to be hematuria. There was no vaginal bleeding noticed on exam. Patient was given 1 g of IV Rocephin here in the emergency department as well as a dose of Pyridium. She'll be discharged home with a prescription for Bactrim and Pyridium. PMD/BANKING ATTORNEY follow- up this week. She was advised when to return to the emergency department pitcher verbalizes understanding and agreement with plan. Diagnosis Primary Impression: UTI (urinary tract infection) Qualified Codes: N30.01 - Acute cystitis with hematuria Referrals: [facility] 3 days Primary Care Physician 3 days Additional Instructions: Follow-up with a primary care physician this week. Follow-up with your BANKING ATTORNEY this week. Take antibiotics as prescribed. Return to the emergency department for worsening symptoms or any other concerns. Scripts Phenazopyridine (Pyridium) 100 Mg Tab 100 MG PO Q8H Y for DYSURIA for 5 Days, #15 TAB 0 Refills Prov: Kojo Ann MD 09/11/17 Sulfamethoxazole-Trimethoprim (Bactrim DS) 800-160 Mg Tab 1 TAB PO BID for Infection, #14 TAB 0 Refills Prov: Kojo Ann MD 09/11/17 Disposition: 01 DISCHARGE HOME Condition: Stable Kojo Ann MD Sep 11, 2017 08:34
[2017-09-11] MEDS ORDERED: SODIUM CHLORIDE 0.9% FLUSH 10 ML FLUSH IV FLUSH PRN (09:15)
[2017-09-11] MEDS ORDERED: cefTRIAXone INJ 1,000 MG in SODIUM CHLORIDE 0.9% INJ 100 ML IV ONE (09:15)
[2017-09-11 09:20] VITALS: O2SAT 98
[2017-09-11 09:26] LABS: AUTOMATED NEUTROPHIL # 2.2 TH/MM3 (1.8-7.7); BASOPHIL % 0.6 % (0.0-2.0); EOSINOPHIL # 0.1 TH/MM3 (0-0.4); EOSINOPHIL % 1.8 % (0.0-4.0); HEMATOCRIT 40.6 % (35.0-46.0); HEMOGLOBIN 13.4 GM/DL (11.6-15.3); LYMPH % 32.1 % (9.0-44.0); LYMPHOCYTE # 1.2 TH/MM3 (1.0-4.8); MEAN CELL VOLUME 83.8 FL (80.0-100.0); MEAN CORPUSCULAR HEMOGLOBIN 27.6 PG (27.0-34.0); MEAN CORPUSCULAR HGB CONC 32.9 % (32.0-36.0); MEAN PLATELET VOLUME 8.4 FL (7.0-11.0); MONO % 6.8 % (0.0-8.0); MONOCYTE # 0.3 TH/MM3 (0-0.9); NEUT % 58.7 % (16.0-70.0); PLATELET COUNT 166 TH/MM3 (150-450); RED BLOOD COUNT 4.84 MIL/MM3 (4.00-5.30); RED CELL DISTRIBUTION WIDTH 11.4 % (11.6-17.2); WHITE BLOOD COUNT 3.9 TH/MM3 (4.0-11.0)
[2017-09-11 09:45] VITALS: BP 116/73; PULSE 89; RESP 17; O2SAT 98
[2017-09-11 10:06] LABS: ALBUMIN 3.9 GM/DL (3.4-5.0); CALCIUM 9.1 MG/DL (8.5-10.1); GLUCOSE,RANDOM 107 MG/DL (74-106)
[2017-09-11 10:07] LABS: BICARBONATE 25.7 MEQ/L (21.0-32.0); BLOOD UREA NITROGEN 12 MG/DL (7-18); CHLORIDE 106 MEQ/L (98-107); SODIUM (NA) 140 MEQ/L (136-145)
[2017-09-11 10:09] LABS: ALT (GPT) 50 U/L (10-53); AST (GOT) 28 U/L (15-37); CREATININE 0.69 MG/DL (0.50-1.00); GLOMERULAR FILTRATION RATE 101 ML/MIN (>89)
[2017-09-11 10:10] LABS: TOTAL BILIRUBIN ADULT 0.3 MG/DL (0.2-1.0)
[2017-09-11 10:11] LABS: TOTAL PROTEIN 7.7 GM/DL (6.4-8.2)
[2017-09-11 10:12] LABS: ALKALINE PHOSPHATASE 75 U/L (45-117)
--- NOTE | 2017-09-11 10:54 | RADRPT ---
EXAM DATE/TIME: 09/11/2017 09:58 [facility] COMPARISON: CT PULMONARY ANGIOGRAM, November 27, 2016, 14:36. INDICATIONS : Bilateral lower back pain with dysuria. Evaluate for renal calculi. ORAL CONTRAST: No oral contrast ingested. RADIATION DOSE: 23.32 CTDIvol (mGy) MEDICAL HISTORY : None SURGICAL HISTORY : Hysterectomy. Cholecystectomy. ENCOUNTER: Initial ACUITY: 2 days PAIN SCALE: 7/10 LOCATION: Bilateral flank TECHNIQUE: Volumetric scanning of the abdomen and pelvis was performed. Using automated exposure control and ad justment of the mA and/or kV according to patient size, radiation dose was kept as low as reasonably achievable to obtain optimal diagnostic quality images. DICOM format image data is available electro nically for review and comparison. FINDINGS: LOWER LUNGS: The visualized lower lungs are clear. LIVER: Homogeneous density without lesion. There is no dilation of the biliary tree. Gallbladder is surgica lly absent. SPLEEN: Normal size without lesion. PANCREAS: Within normal limits. KIDNEYS: Normal in size and shape. Suspect duplicated renal collecting system on the right. There is no mass, stone, or hydronephrosis. ADRENAL GLANDS: Within normal limits. VASCULAR: There is no aortic aneurysm. BOWEL/MESENTERY: The stomach, small bowel, and colon demonstrate no acute abnormality. There is no free intraperitone al air or fluid. ABDOMINAL WALL: Within normal limits. RETROPERITONEUM: There is no lymphadenopathy. Radiopaque BLADDER: No wall thickening or mass. No bladder calculi. REPRODUCTIVE: Uterus is surgically absent. The INGUINAL: There is no lymphadenopathy or hernia. MUSCULOSKELETAL: Within normal limits for patient age. CONCLUSION: 1. No acute abnormality in the abdomen or pelvis. 2. Specifically, no evidence for radiopaque renal calculi or obstructive uropathy. 3. Normal appendix. Galindo Pena MD on September 11, 2017 at 10:44 Board Certified Radiologist. This report was verified electronically.
[2017-09-11 10:55] VITALS: BP 118/67; PULSE 92; RESP 16; O2SAT 99
[2017-09-11] MEDS ORDERED: PHENAZOPYRIDINE HCL 200 MG TAB PO ONE (11:15)
[2017-09-11] MEDS ORDERED: PHEN0.4T PO (11:16)
[2017-09-11] MEDS ORDERED: BACT800T5 PO (11:16)
[2017-09-11 11:28] VITALS: BP 119/71
== END 2017-09-11 11:30 | disposition home or self-care (01) ==
LOC: PHED 07:25
DX: N30.01 Acute cystitis with hematuria (principal); B96.20 Unspecified Escherichia coli [E. coli] as the cause of diseases classified elsewhere; J45.909 Unspecified asthma, uncomplicated; F41.9 Anxiety disorder, unspecified; F32.9 Major depressive disorder, single episode, unspecified; E28.2 Polycystic ovarian syndrome
CPT/HCPCS: 74176; 80053; 81001; 85025; 87077; 87086; 87186; 87210; 87491; 87591; 96365; 99284; J0696